=== PATIENT | male | born 1990 | race American Indian/Alaskan Native ===

== ENCOUNTER 2018-09-19 21:09 | Emergency (ER) | payer SELFPAY ==
[2018-09-19 21:26] VITALS: BP 141/54
[2018-09-19] MEDS ORDERED: TYLENOL PO ONE (21:33)
[2018-09-19] MEDS ORDERED: TYLENOL ONE (21:36)
[2018-09-20 01:11] LABS: Bilirubin,Urine NEG (Negative); Blood,Urine NEG (Negative); Color,Urine Yellow (Yellow); Mucus,Urine FEW /HPF; Protein,Urine <15 mg/dL mg/dL (Negative); Urobilinogen,Urine < 2.0 mg/dL (<2.0)
[2018-09-20] MEDS ORDERED: XYLOCAINE 1% MPF 5 mL INFILTRATI ONE (03:07)
[2018-09-20] MEDS ORDERED: ROCEPHIN IM STA (03:07)
[2018-09-20] MEDS ORDERED: ZITHROMAX PO ONE (03:07)
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
== END 2018-09-20 03:25 | disposition left against medical advice (07) ==
LOC: ED 21:09
DX: R10.2 Pelvic and perineal pain (principal); R30.0 Dysuria; Z87.891 Personal history of nicotine dependence
CPT/HCPCS: 81001; 87086; 87591; 96372; 99283; J0696